=== PATIENT | female | born 1995 | race Caucasian/White ===

== ENCOUNTER 2024-11-16 13:59 | Outpatient (CLI) | payer BC, SELFPAY ==
--- NOTE | 2024-11-16 14:00 | CRLHL7_ITS ---
For Patients: As a result of the Century Cures Act, medical imaging exams and procedure reports are released immediately into your electronic medical record. You may view this report before your referring provider. If you have questions, please contact your health care provider. OBSTETRICAL ULTRASOUND TRANSVAGINAL CLINICAL INDICATION: Dating and viability. Surgery: None. LMP: 09/15/2024 BRANDI by LMP: 06/22/2025 Gestational age: 8 weeks 6 days Previous ultrasound: Yes, at a different facility. TECHNIQUE: Real-time mohamud-scale imaging of the fetus was performed transvaginal. Transvaginal imaging was performed for better visualization of the endometrium and ovaries. FINDINGS: CRL: 2.2 cm, 8 weeks 6 days; BRANDI 06/22/2025 heart rate: 169 BPM Gestational sac: 4.2 cm, appears within normal limits Yolk sac: 4.2 mm, appears within normal limits Right ovary: 4.0 x 1.7 x 2.6 cm, CL Left ovary: 3.6 x 2.0 x 2.5 cm COMMENT: Per patient: She had an ultrasound at an ER recently and they noted an umbilical cyst. No evidence of an umbilical cyst on today???s exam. IMPRESSION: 1. Single living intrauterine measures 8 weeks 6 days with sonographic due date of 06/22/2025. 2. No evidence of umbilical cord cyst. BAIRON SALINAS M.D. Diagnostic Radiologist [email or web address] Transcribed: 5:[address]/Dictated by: Bairon Salinas MD @ 11/16/2024 4:11:00 PM (Electronically Signed)
== END 2024-11-16 14:00 | disposition home or self-care (01) ==
LOC: US 13:59
PROVIDERS: Visit Provider Physician Assistant
DX: Z34.91 Encounter for supervision of normal pregnancy, unspecified, first trimester (principal); Z3A.08 8 weeks gestation of pregnancy
CPT/HCPCS: 76817

== ENCOUNTER 2024-11-16 15:25 | Outpatient (CLI) | payer BC, SELFPAY ==
[2024-11-16 21:55] LABS: Chlamydia DNA Amplified* NOT DETECTED (No Detected); GC DNA Amplified* NOT DETECTED (No Detected)
== END 2024-11-16 15:26 | disposition home or self-care (01) ==
PROVIDERS: Visit Provider Physician Assistant
DX: Z34.91 Encounter for supervision of normal pregnancy, unspecified, first trimester (principal); Z3A.08 8 weeks gestation of pregnancy
CPT/HCPCS: 76817; 83020; 83021; 85660; 86592; 86703; 86704; 86706; 86762; 86787; 86803; 86850; 86900; 86901; 87086; 87340; 87491; 87591

== ENCOUNTER 2025-01-31 12:10 | Outpatient (CLI) | payer BC, SELFPAY ==
--- NOTE | 2025-01-31 12:15 | CRLHL7_ITS ---
For Patients: As a result of the Century Cures Act, medical imaging exams and procedure reports are released immediately into your electronic medical record. You may view this report before your referring provider. If you have questions, please contact your health care provider. OB ULTRASOUND ANATOMY TRANSABDOMINAL LMP: 09/15/2024. BRANDI by LMP: 06/22/2025. GA: 19 w, 5 d. INDICATION: Supervision of normal . TECHNIQUE: Real time mohamud scale imaging of the fetus was performed. Transabdominal imaging performed. position: Vertex. Cervix: Visualized. Technique: Transabdominal. Length of closed cervix: 3.1 cm. Placenta/cord: Placental position: Anterior. Technique: Transabdominal. Placenta tip to internal OS: 2.0 cm. Umbilical Cord: 3-vessel cord. Placenta insertion: Central. Amniotic Fluid: 5.0 cm SDP (greater than/equal to: 2- less than 8 cm). SURVEY: Calvarium/Spine: Cerebellum: 2.0 cm, 20 w 4 d. Cisterna Magna: 6.0 mm. Nuchal Fold: 4.1 mm. Lateral Ventricle: 5.4 mm. CSP: Yes. Midline Falx: Yes. Choroid Plexus: Yes. Spine: Yes. Abdomen: Stomach: Yes. Abd Cord Insertion: Yes. Urinary Bladder: Yes. Kidneys: Yes. Diaphragm: Yes. Face: Nose/lips: See comment. Orbital view: Yes. Profile: Yes. Limbs: Upper Extremities: Yes. Lower Extremities: Yes. Hands: See comment. Feet: Yes. Vascular: 4-Chamber Heart: Yes. LVOT: Yes. RVOT: Yes. 3VV: Yes. 3VTV: Yes. BPD: 4.6 cm. 19 w, 6 d, 57 percent. HC: 17.3 cm. 19 w, 6 d, 48 percent. AC: 14.5 cm. 19 w, 6 d, 49 percent. FL: 3.0 cm. 19 w, 3 d, 30 percent. FL/AC ratio: 20.88 percent. HC/AC ratio: 1.19. heart rate: 142 bpm. age by this US: 20 w, 0 d. BRANDI by this US: 06/20/2025. EFW: 304.43 g. Weight: 0 lbs, 11 oz. Percentile by BRANDI: 41 percent. IMPRESSION: 1. Concordance of clinical and sonographic dating. 2. Incomplete visualization of the nose, lips and hands. Remainder of the anatomic survey is unremarkable. Short-term follow-up recommended. Bairon Escamilla M.D. Diagnostic Radiologist [email or web address] SP/Dictated by: Bairon Escamilla MD @ 01/31/2025 6:00:00 PM (Electronically Signed)
== END 2025-01-31 12:11 | disposition home or self-care (01) ==
LOC: US 12:11
PROVIDERS: Visit Provider Obstetrics & Gynecology
DX: Z34.82 Encounter for supervision of other normal pregnancy, second trimester (principal); Z36.89 Encounter for other specified antenatal screening; Z3A.20 20 weeks gestation of pregnancy
CPT/HCPCS: 76805